=== PATIENT | male | born 1970 | race Caucasian/White ===

== ENCOUNTER 2020-10-28 22:16 | Emergency (ER) | payer OTHER ==
[2020-10-29] MEDS ORDERED: NAPROSYN375 MG PO (01:18)
== END 2020-10-29 01:35 | disposition home or self-care (01) ==
LOC: FER 22:16
DX: S20.211A Contusion of right front wall of thorax, initial encounter (principal); W18.30XA Fall on same level, unspecified, initial encounter
CPT/HCPCS: 71101; 71250; J2270